=== PATIENT | female | born 1995 | race African-American/Black ===

== ENCOUNTER 2024-11-14 11:12 | Emergency (ER) | payer MEDICAID, OTHER ==
[~2024-11-14] VITALS: Ht 172.7 cm; Wt 121.0 kg
[2024-11-14 11:24] VITALS: TEMP 37.2; O2SAT 99
[2024-11-14] MEDS: ACETAMINOPHEN 650MG/20.3ML UDC PO ONE (12:40)
[2024-11-14 12:59] LABS: CLARITY URINE CLEAR (CLEAR); COLOR URINE YELLOW (YELLOW); GLUCOSE URINE NEGATIVE (NEGATIVE); KETONES URINE NEGATIVE (NEGATIVE); LEUKOCYTE ESTERASE URINE NEGATIVE (NEGATIVE); NITRITE URINE NEGATIVE (NEGATIVE); OCCULT BLOOD URINE NEGATIVE (NEGATIVE); PROTEIN URINE NEGATIVE (NEGATIVE); SPECIFIC GRAVITY URINE 1.013 (1.005-1.030)
[2024-11-14] MEDS: DEXAMETHASONE 10 MG/ML VIAL PO ONE (15:06)
[2024-11-14] MEDS ORDERED: NAPR-1176 MT (15:12)
[2024-11-14 15:24] VITALS: BP 143/89; PULSE 83; RESP 16; O2SAT 99
== END 2024-11-14 15:27 | disposition home or self-care (01) ==
LOC: ER 11:12
DX: J02.9 Acute pharyngitis, unspecified (principal)
CPT/HCPCS: 81003; 81025; 87430; 87070; 99283; J1100; Z7610